=== PATIENT | female | born 1990 | race Caucasian/White ===

== ENCOUNTER 2016-10-09 18:18 | Emergency (ER) | payer OTHER ==
[~2016-10-09] VITALS: Ht 157.5 cm; Wt 77.1 kg
[2016-10-09] MEDS ORDERED: MOBIC15 M1 PO (19:08)
[2016-10-09] MEDS ORDERED: CYCLOBENZAPRINE10 M1 PO (19:08)
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
[2016-10-09 19:25] VITALS: BP 127/77
== END 2016-10-09 19:39 ==
LOC: ERH 18:18
DX: S19.9XXA Unspecified injury of neck, initial encounter (principal); S39.012A Strain of muscle, fascia and tendon of lower back, initial encounter; V49.40XA Driver injured in collision with unspecified motor vehicles in traffic accident, initial encounter